=== PATIENT | male | born 1990 | race African-American/Black ===

== ENCOUNTER 2017-02-10 17:06 | Emergency (ER) | payer OTHER ==
[~2017-02-10] VITALS: Ht 180.3 cm; Wt 61.2 kg
--- NOTE | 2017-02-10 18:45 | ED CARDIAC/CP/PALPITATIONS ---
History of Present Illness General Chief Complaint: Chest Pain Stated Complaint: CHEST PAIN WITH ARM MOVEMENT [id number]? Source: patient, old records, friend Exam Limitations: no limitations Vital Signs & Intake/Output Vital Signs & Intake/Output Vital Signs Date Time Temp Pulse Resp B/P B/P Pulse O2 O2 Flow FiO2 Mean Ox Delivery Rate 02/10 1810 Room Air 02/10 1722 99.0 85 18 120/77 100 Allergies Coded Allergies: No Known Allergies (02/10/17) Reconcile Medications No Known Home Medications Triage Note: PT TO ED FOR BILATERAL PECTORAL PAIN WHEN CROSSING ARMS IN FRONT OF HIMSELF X 2 MONTHS. Triage Nurses Notes Reviewed? yes Onset: 2 months Duration: continues in ED, months Timing: recent history Quality/Severity: moderate, aching, tightness Location: central, back Radiation: no radiation Activities at Onset: activity Prior Chest Pain/Card Workup: no prior cardiac workup Modifying Factors: Improves With: rest. Worsens With: exercise, movement. Nitro Today/Relief: no nitro taken today Aspirin Today: no aspirin today HPI: Two months prior to admission patient complains of bilateral pectoral and right upper back pain worse with movement of upper extremities turning bending mild to moderate severity occurring intermittently improved with rest. He denies fever chills nausea vomiting diarrhea abdominal pain shortness breath headache dysuria rash bleeding change in motor sensory function change in bowel bladder habit. He works as an manufacturing electrician. Past History Travel History Traveled to [place] past 21 day No Medical History Any Pertinent Medical History? none Neurological: NONE EENT: NONE Cardiovascular: NONE Respiratory: NONE Gastrointestinal: NONE Hepatic: NONE Renal: NONE Musculoskeletal: NONE Psychiatric: NONE Endocrine: NONE Blood Disorders: NONE Cancer(s): NONE Surgical History Surgical History: non-contributory Psychosocial History What is your primary language Latvian Tobacco Use: Refused to answer ETOH Use: occasional use Illicit Drug Use: denies illicit drug use Family History Hx Contributory? No Review of Systems Review of Systems Constitutional: Reports: no symptoms. EENTM: Reports: no symptoms. Respiratory: Reports: no symptoms. Cardiovascular: Reports: see HPI, chest pain. GI: Reports: no symptoms. Genitourinary: Reports: no symptoms. Musculoskeletal: Reports: see HPI, back pain. Skin: Reports: no symptoms. Neurological/Psychological: Reports: no symptoms. Hematologic/Endocrine: Reports: no symptoms. Immunologic/Allergic: Reports: no symptoms. All Other Systems: Reviewed and Negative Physical Exam Physical Exam General Appearance: well developed/nourished, alert, awake, anxious, mild distress, thin Head: atraumatic, normal appearance Eyes: Bilateral: normal appearance, PERRL, EOMI. Ears, Nose, Throat: normal pharynx, normal ENT inspection, hearing grossly normal Neck: normal inspection, supple, full range of motion, no midline tenderness Respiratory: normal breath sounds, no respiratory distress, quiet respiration, lungs clear, bilateral mid pectoral soft tissue tenderness Cardiovascular: regular rate/rhythm, normal peripheral pulses, norml femoral pulses equa Peripheral Pulses: 4+ carotid (R), 4+ carotid (L) Gastrointestinal: normal bowel sounds, soft, non-tender, no organomegaly Back: normal inspection, normal range of motion, muscle spasm, no vertebral tenderness Extremities: normal inspection, normal capillary refill, normal range of motion, no edema Neurologic/Psych: no motor/sensory deficits, awake, alert, oriented x 3, normal gait, normal mood/affect, portfolio mgr II-XII nml as tested Reflexes: 2+: bicep (R), bicep (L). Skin: intact, normal color, warm/dry Lymphatic: no anterior cervical john Core Measures ACS in differential dx? Yes ASA ordered for poss ACS? No-ACS ruled out Severe Sepsis Present: No Septic Shock Present: No Progress Differential Diagnosis: costochondritis, musculoskeletal pain, pneumonia Plan of Care: Orders Procedure Date/time Status XRY-CHEST XRAY, PA AND LATERAL 02/10 1810 Active Diagnostic Imaging: Viewed by Me: Radiology Read. Discussed w/RAD: Radiology Read. CXR Impression: no acute abnormality, no infiltrates, normal size heart, normal mediastinum Initial ED EKG: none Departure Departure Time of Disposition: 1916 Disposition: HOME OR SELF CARE Condition: Stable Clinical Impression Primary Impression: Musculoskeletal chest pain Secondary Impressions: Musculoskeletal back pain Referrals: PATIENT HAS NO PRIMARY CARE DR (PCP/Family) Departure Forms: Customer Survey General Discharge Information Prescriptions: Current Visit Scripts Ibuprofen 1 TAB PO [id number] PRN pain #50 TAB with food Baclofen 1 TAB PO [id number] PRN muscle spasm/strain #30 TAB Critical Care Note Critical Care Note Critical Care Time: non-applicable
--- NOTE | 2017-02-10 19:04 | RADIOLOGY REPORT ---
EXAMINATION: XR CHEST CLINICAL INFORMATION: Musculoskeletal strain. Pectoralis and upper back pain with movement COMPARISON: None TECHNIQUE: 2 views of the chest were obtained. FINDINGS: No significant abnormality is noted involving the heart, lungs, mediastinum, bony thorax or soft tissues. IMPRESSION: Unremarkable examination.
[2017-02-10] MEDS ORDERED: BACLOFEN10 M1 PO (19:18)
[2017-02-10] MEDS ORDERED: IBUPROFEN600 M1 PO (19:18)
[2017-02-10 19:33] VITALS: BP 118/72
== END 2017-02-10 19:34 ==
LOC: ERH 17:06
DX: R07.89 Other chest pain (principal); M54.9 Dorsalgia, unspecified